=== PATIENT | male | born 1965 | race Caucasian/White ===

== ENCOUNTER 2017-09-25 15:59 | Emergency (ER) | payer MEDICARE, OTHER ==
[~2017-09-25 15:59] MED LIST: ALBU0.63 NEB; BACT2OIN TOP; DOXY100T PO; SULF1TAB47 PO
[2017-09-25 16:01] VITALS: BP 140/83; PULSE 81; RESP 20; TEMP 98.2; O2SAT 99
[2017-09-25] MEDS ORDERED: VENTAER INH (16:32)
[2017-09-25] MEDS ORDERED: DOXY100C PO (16:32)
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
== END 2017-09-25 17:22 | disposition home or self-care (01) ==
LOC: NEPK 15:59
DX: J44.1 Chronic obstructive pulmonary disease with (acute) exacerbation (principal); Z72.0 Tobacco use
CPT/HCPCS: 99284